=== PATIENT | female | born 1990 | race Caucasian/White ===

== ENCOUNTER 2019-02-09 21:55 | Emergency (ER) | payer OTHER ==
[~2019-02-09] VITALS: Ht 193 cm; Wt 70.3 kg
[2019-02-09 21:55] VITALS: BP 136/90
[2019-02-10 01:21] VITALS: BP 136/90
== END 2019-02-10 01:21 | disposition home or self-care (01) ==
LOC: MED 21:55
DX: S83.8X1A Sprain of other specified parts of right knee, initial encounter (principal); X58.XXXA Exposure to other specified factors, initial encounter; Y93.89 Activity, other specified; Y92.89 Other specified places as the place of occurrence of the external cause; Y99.8 Other external cause status
CPT/HCPCS: 93971; 99284; Q0092

== ENCOUNTER 2019-05-23 16:18 | Emergency (ER) | payer OTHER ==
[~2019-05-23] VITALS: Ht 193 cm; Wt 79.8 kg
[2019-05-23 16:33] VITALS: BP 131/60
--- NOTE | 2019-05-23 18:51 | NUR ---
PT AMBULATED TO ER BED 11
--- NOTE | 2019-05-23 19:30 | NUR ---
28 Y/O FEMALE PRESENTS TO ED, C/O ABDOMINAL 09/20. PT STATES GOING TO URGENT CARE THIS MORNING AND BEING REFERRED TO ED TO R/O APPENDICITIS. PT STATES PAIN IS ON LLQ OF ABDOMEN. PT DENIES ANY N/V/D. ABDOMEN IS SOFT AND NONTENDER. BS ACTIVE X4 QUADRANTS. PT DENIES TAKING ANY MEDICATIONS FOR PAIN. PT VSS. ERMD AWARE. WILL CONTINUE TO MONITOR.
[2019-05-23 20:44] LABS: BASOPHILS # (AUTO) 0.1 K/uL (0.00-0.22); BASOPHILS % (AUTO) 1.1 % (0.0-2.0); EOSINOPHILS # (AUTO) 0.1 K/uL (0-0.4); EOSINOPHILS % (AUTO) 1.7 % (0.0-4.0); HEMATOCRIT 40.2 % (36-48); HEMOGLOBIN 13.5 g/dL (12.0-16.0); LYMPHOCYTES # (AUTO) 1.2 K/uL (2.5-16.5); LYMPHOCYTES % (AUTO) 19.5 % (20.5-51.1); MEAN CORPUSCULAR HEMOGLOBIN 33 pg (27-31); MEAN CORPUSCULAR HGB CONC 34 g/dL (33-37); MEAN CORPUSCULAR VOLUME 97.5 fL (80-94); MONOCYTES # (AUTO) 0.5 K/uL (0.8-1.0); NEUTROPHILS # (AUTO) 4.2 K/uL (1.8-7.7); NEUTROPHILS % (AUTO) 69.7 % (42.2-75.2); PLATELET COUNT (AUTO) 186 K/uL (140-450); RED BLOOD CELL COUNT(AUTO) 4.12 MIL/uL (4.20-5.40); RED CELL DISTRIBUTION WIDTH 12.5 % (11.6-13.7)
[2019-05-23 21:01] LABS: ANION GAP 12.9 (8-16); CARBON DIOXIDE 24.5 mmol/L (21-32); POTASSIUM 3.4 mmol/L (3.5-5.1)
[2019-05-23 21:15] LABS: ALBUMIN 3.7 g/dL (3.4-5.0); TOTAL BILIRUBIN 0.2 mg/dL (0.0-1.0)
[2019-05-23 21:25] VITALS: BP 121/72
--- NOTE | 2019-05-23 21:25 | NUR ---
PT DISCHARGED WITH PAPERWORK. EDUCATED PT REGARDING MEDICATIONS AND D/C INSTRUCTIONS. PT VERBALIZED UNDERSTANDING OF TEACHING. TOLD PT TO FOLLOW UP WITH PCP AND WHEN TO RETURN TO ED. PT AT STABLE CONDITION. ALL QUESTIONS ANSWERED.
== END 2019-05-23 21:25 | disposition home or self-care (01) ==
LOC: MED 16:18
DX: S39.011A Strain of muscle, fascia and tendon of abdomen, initial encounter (principal); X58.XXXA Exposure to other specified factors, initial encounter; Y92.89 Other specified places as the place of occurrence of the external cause; Y93.89 Activity, other specified; Y99.8 Other external cause status
CPT/HCPCS: 36415; 76705; 80053; 85025; 85610; 85730; 99284; Q0092

== ENCOUNTER 2019-08-10 04:13 | Emergency (ER) | payer OTHER ==
[~2019-08-10] VITALS: Ht 193 cm; Wt 79.5 kg
[2019-08-10 04:21] VITALS: BP 152/78
[2019-08-10 04:55] VITALS: BP 152/78
== END 2019-08-10 04:55 | disposition home or self-care (01) ==
LOC: MED 04:13
DX: R00.2 Palpitations (principal); Z02.89 Encounter for other administrative examinations; V89.2XXA Person injured in unspecified motor-vehicle accident, traffic, initial encounter; Y93.89 Activity, other specified; Y92.89 Other specified places as the place of occurrence of the external cause; Y99.8 Other external cause status
CPT/HCPCS: 99281; 99283